=== PATIENT | female | born 1995 | race Caucasian/White ===

== ENCOUNTER 2020-05-20 02:16 | Emergency (ER) | payer OTHER ==
[~2020-05-20] VITALS: Ht 154.9 cm; Wt 58.5 kg
[2020-05-20 02:24] VITALS: BP 143/99; Ht 154.9 cm; Wt 58.5 kg
== END 2020-05-20 04:07 | disposition other institution (70) ==
LOC: ED 02:16
DX: Z02.89 Encounter for other administrative examinations (principal)